=== PATIENT | female | born 1980 | race African-American/Black ===

== ENCOUNTER 2020-03-06 14:26 | Emergency (ER) | payer SELFPAY ==
[~2020-03-06 14:26] MED LIST: Iopamidol 370 76% 100 ML VIAL ONE
[2020-03-06 15:07] LABS: #Lymphocytes 1.6 thou/uL (1.20-3.40); #Monocytes 0.8 thou/uL (0.11-0.59); #Neutrophils 9.5 thou/uL (1.40-6.50); %Basophils 0.4 % (0.0-1.0); %Lymphocytes 13.4 % (21.0-51.0); %Monocytes 6.4 % (0.0-10.0); %Neutrophils 79.8 % (42.0-75.0); Hemoglobin 12.1 g/dL (12.0-16.0); Mean Corpuscular HGB CONC 31.3 g/dL (32.0-36.0); Mean Corpuscular Hemoglobin 33.3 pg (27.0-31.0); Mean Platelet Volume 5.9 fL (7.4-10.4); Platelet Count 551 thou/uL (130-400); RBC Distribution Width 15.2 % (11.5-14.5); Red Blood Cell (RBC) Count 3.63 mill/uL (4.20-5.40)
[2020-03-06 15:12] LABS: Pregnancy Test - Urine (BHCG) Negative (Negative); Pregu Control Background? CLEAR/WHITE (CLR/WHITE); Pregu Control Bar Appear? YES (CONTROL BAR)
[2020-03-06] MEDS ORDERED: Ondansetron PF 4 MG/2 ML Vial ONE ×3 (15:15→18:23)
[2020-03-06] MEDS ORDERED: Sodium Chloride 0.9% 1,000 ML ONE ×2 (15:15→15:54)
[2020-03-06 15:17] LABS: Bilirubin Moderate (Negative); Blood, Urine Negative (Negative); Clarity Slightly Cloudy (Clear); Glucose, Urine (Dipstick) Negative (Negative); Leukocyte Negative (Negative); Nitrite Positive (Negative); Protein, Urine (Dipstick) 100 mg/dL (Neg-Trace)
[2020-03-06 15:18] LABS: RBC/HPF 0-3 HPF (0-3)
[2020-03-06 15:19] LABS: Bacteria/HPF Rare-Few HPF (None Seen); Mucous/LPF 2+ LPF (<2+)
[2020-03-06 15:26] LABS: Hypochromia SLIGHT = 6-15 cells (100X) (0-5/hpf); MDiff Complete? YES; Macrocytosis MODERATE=16-30 cells (100X) (0-5/hpf); Platelet Morphology Comment Appears Increased
[2020-03-06 15:36] LABS: ALT (SGPT) 69 U/L (8-55); AST (SGOT) 102 U/L (5-34); Albumin 4.2 g/dL (3.5-5.0); Alkaline Phosphatase 117 U/L (40-110); Anion Gap 31 mmol/L (10-20); BUN (Urea Nitrogen) 6 mg/dL (7.0-18.7); Calc. Creatinine Clearance 0 mL/min (70-130); Calcium 10.2 mg/dL (7.8-10.44); Carbon Dioxide 20 mmol/L (22-29); Chloride 95 mmol/L (98-107); Estimated GFR-MDRD Greater than 90; Globulin 3.6 g/dL (2.4-3.5); Glucose 87 mg/dL (70-105); Lipase 36 U/L (8-78); Protein, Total 7.8 g/dL (6.0-8.3); Sodium 143 mmol/L (136-145)
[2020-03-06 15:51] LABS: Potassium 2.9 mmol/L (3.5-5.1)
[2020-03-06] MEDS ORDERED: Promethazine HCl 25 MG/ML VIAL ONE (15:54)
[2020-03-06] MEDS ORDERED: Cefepime 2 GM VIAL ONE (16:15)
[2020-03-06] MEDS ORDERED: Potassium Chloride 10 MEQ/100 ML PREMIX BAG ONE (17:13)
--- NOTE | 2020-03-06 17:35 | CT ---
CT Abdomen Pelvis W Con History: Nausea with vomiting Comparison: None. Findings: Mild atelectasis right middle lobe. No pericardial effusion. Severe hepatic steatosis. Mild diverticular disease of the descending colon. Submucosal edema with thickened ascending and davidson sverse colon with mild mesenteric edema. There are also a few loops of bowel in the left lower quadrant the abdomen, the jejunum, which are mildly distended with sacculations. Symmetrical subtle f atty infiltration of the cecum. The aortoiliac contour is nonaneurysmal. The appendix is visualized and is normal. Lumbosacral transitional vertebra. No hydronephrosis. Adrenal glands are unremarkable. Impression: 1. Findings of ascending and transverse colitis. Given the submucosal fatty infiltration, left upper quadrant small bowel sacculations and diffuse hepatic steatosis, findings can be seen with chronic inflammatory bowel disease. Nonemergent GI follow-up recommended. 2. Normal appendix.
[2020-03-06] MEDS ORDERED: Vancomycin 1.5 GRAM/300 ML BAG ONE (17:58)
[2020-03-06] MEDS ORDERED: Morphine 4 MG/ML VIAL ONE (17:58)
[2020-03-06] MEDS ORDERED: metroNIDAZOLE 500 MG/100 ML BAG ONE (17:58)
[2020-03-06] MEDS ORDERED: Sodium Chloride 0.9% 500 ML ONE (18:00)
[2020-03-06] MEDS ORDERED: Vancomycin HCl 750 MG VIAL ONE (18:00)
[2020-03-06] MEDS ORDERED: Lorazepam 2 MG/ML VIAL ONE (18:23)
[2020-03-06] MEDS ORDERED: diphenhydrAMINE 50 MG/ML VIAL ONE (18:23)
[2020-03-06 19:41] LABS: Lactic Acid 5.7 mmol/L (0.5-2.2)
== END 2020-03-06 19:50 | disposition short-term general hospital (02) ==
LOC: NAV ERS 14:26
DX: K52.9 Noninfective gastroenteritis and colitis, unspecified (principal); E87.6 Hypokalemia; E87.2 Acidosis; N39.0 Urinary tract infection, site not specified; R11.2 Nausea with vomiting, unspecified; I10 Essential (primary) hypertension; Z79.899 Other long term (current) drug therapy
CPT/HCPCS: 36415; 74177; 80053; 81003; 81015; 81025; 83605; 83690; 85025; 87040; 87086; 93005; 94760; 96365; 96366; 96367; 96368; 96375; 96376; J0692; J1200; J2060; J2270; J2405; J2550; J3370; J3480; J7030; J7050; Q9967

== ENCOUNTER 2020-03-23 20:15 | Emergency (ER) | payer OTHER, SELFPAY ==
[2020-03-23] MEDS ORDERED: Mag-Al Plus 1200 MG/1200 MG/120 MG/30 ML UDCUP ONE (21:00)
[2020-03-23] MEDS ORDERED: Lidocaine Viscous Sol 2% 15 ml UD Cup ONE (21:00)
[2020-03-23] MEDS ORDERED: Pantoprazole 40 MG VIAL ONE (21:00)
[2020-03-23 21:04] LABS: Bilirubin Moderate (Negative); Blood, Urine Negative (Negative); Clarity Clear (Clear); Glucose, Urine (Dipstick) Negative (Negative); Ketone, Urine 15 mg/dL (Negative); Leukocyte Negative (Negative); Nitrite Negative (Negative); Protein, Urine (Dipstick) 30 mg/dL (Neg-Trace); pH, Urine 6.5 (5.0-9.0)
[2020-03-23 21:07] LABS: Bacteria/HPF Rare-Few HPF (None Seen); Squamous Epithelial 0-3 HPF (0-3); WBC/HPF 0-3 HPF (0-3)
[2020-03-23 21:17] LABS: #Basophils 0.1 thou/uL (0.0-0.2); #Lymphocytes 2.7 thou/uL (1.20-3.40); #Monocytes 0.6 thou/uL (0.11-0.59); #Neutrophils 7.6 thou/uL (1.40-6.50); %Basophils 1.3 % (0.0-1.0); %Eosinophils 0.2 % (0.0-10.0); %Lymphocytes 24.1 % (21.0-51.0); %Monocytes 5.7 % (0.0-10.0); %Neutrophils 68.7 % (42.0-75.0); Hemoglobin 10.1 g/dL (12.0-16.0); Mean Corpuscular HGB CONC 32.8 g/dL (32.0-36.0); Mean Corpuscular Hemoglobin 34.1 pg (27.0-31.0); Mean Platelet Volume 5.8 fL (7.4-10.4); Platelet Count 768 thou/uL (130-400); RBC Distribution Width 15.1 % (11.5-14.5); Red Blood Cell (RBC) Count 2.95 mill/uL (4.20-5.40)
[2020-03-23 21:30] LABS: ALT (SGPT) 42 U/L (8-55); AST (SGOT) 59 U/L (5-34); Alkaline Phosphatase 106 U/L (40-110); Anion Gap 23 mmol/L (10-20); BUN (Urea Nitrogen) 5 mg/dL (7.0-18.7); Bilirubin, Total 0.8 mg/dL (0.2-1.2); Calc. Creatinine Clearance 0 mL/min (70-130); Calcium 9.6 mg/dL (7.8-10.44); Carbon Dioxide 23 mmol/L (22-29); Chloride 97 mmol/L (98-107); Estimated GFR-MDRD Greater than 90; Globulin 3.5 g/dL (2.4-3.5); Glucose 97 mg/dL (70-105); Lipase 49 U/L (8-78); Protein, Total 7.5 g/dL (6.0-8.3); Sodium 140 mmol/L (136-145)
[2020-03-23 21:33] LABS: Potassium 2.7 mmol/L (3.5-5.1)
[2020-03-23] MEDS ORDERED: Ondansetron PF 4 MG/2 ML Vial ONE (23:09)
[2020-03-23 23:52] LABS: Lactic Acid 1.3 mmol/L (0.5-2.2)
[2020-03-24] MEDS ORDERED: Potassium Chloride 20 MEQ TAB ONE (00:04)
[2020-03-25 12:17] LABS: SARS-CoV-2 MS2 Positive; SARS-CoV-2 N Gene Negative; SARS-CoV-2 S Gene Negative; SARS-CoV-2 orf1ab Negative
== END 2020-03-24 00:20 | disposition home or self-care (01) ==
LOC: NAV ERS 20:15
DX: E86.0 Dehydration (principal); E87.6 Hypokalemia; I10 Essential (primary) hypertension; Z79.899 Other long term (current) drug therapy
CPT/HCPCS: 36415; 80053; 81003; 81015; 83605; 83690; 85025; 87635; 96361; 96365; 96366; 96375; C9113; J2405; U0003

== ENCOUNTER 2022-06-18 15:27 | Emergency (ER) | payer SELFPAY ==
[2022-06-18] MEDS ORDERED: Sodium Chloride 0.9% 1,000 ML ONE (15:47)
[2022-06-18] MEDS ORDERED: Promethazine HCl 25 MG/ML VIAL ONE (15:47)
[2022-06-18] MEDS ORDERED: Metoclopramide HCl 10 MG/2 ML VIAL ONE (15:49)
[2022-06-18] MEDS ORDERED: diphenhydrAMINE 50 MG/ML VIAL ONE (15:49)
[2022-06-18 15:56] LABS: #Basophils 0.1 thou/uL (0.0-0.2); #Lymphocytes 1.4 thou/uL (1.20-3.40); #Monocytes 0.5 thou/uL (0.11-0.59); #Neutrophils 5.4 thou/uL (1.40-6.50); %Basophils 1.1 % (0.0-1.0); %Eosinophils 0.1 % (0.0-10.0); %Lymphocytes 18.8 % (21.0-51.0); %Monocytes 6.9 % (0.0-10.0); Hemoglobin 14.8 g/dL (12.0-16.0); Mean Corpuscular HGB CONC 33.3 g/dL (32.0-36.0); Mean Corpuscular Hemoglobin 32.3 pg (27.0-31.0); Mean Platelet Volume 8.2 fL (7.4-10.4); Platelet Count 254 thou/uL (130-400); RBC Distribution Width 11.3 % (11.5-14.5); Red Blood Cell (RBC) Count 4.58 mill/uL (4.20-5.40); White Blood Cell (WBC) Count 7.4 thou/uL (4.8-10.8)
[2022-06-18 16:15] LABS: ALT (SGPT) 89 U/L (8-55); AST (SGOT) 141 U/L (5-34); Albumin 4.7 g/dL (3.5-5.0); Alkaline Phosphatase 119 U/L (40-110); Anion Gap 24 mmol/L (10-20); BUN (Urea Nitrogen) 8 mg/dL (7.0-18.7); Bilirubin, Total 1.3 mg/dL (0.2-1.2); Calc. Creatinine Clearance 0 mL/min (70-130); Calcium 9.8 mg/dL (7.8-10.44); Carbon Dioxide 24 mmol/L (22-29); Chloride 98 mmol/L (98-107); Estimated GFR 88; Globulin 3.4 g/dL (2.4-3.5); Glucose 110 mg/dL (70-105); Protein, Total 8.1 g/dL (6.0-8.3); Sodium 143 mmol/L (136-145)
[2022-06-18 16:15] LABS: Bilirubin Small (Negative); Blood, Urine Negative (Negative); Glucose, Urine (Dipstick) Negative (Negative); Ketone, Urine Negative (Negative); Leukocyte Negative (Negative); Nitrite Negative (Negative); Protein, Urine (Dipstick) 100 mg/dL (Neg-Trace)
[2022-06-18 16:16] LABS: Clarity Hazy (Clear)
[2022-06-18 16:18] LABS: Potassium 2.9 mmol/L (3.5-5.1)
[2022-06-18 16:20] LABS: Specific Gravity, Urine 1.026 (1.002-1.036)
[2022-06-18 16:28] LABS: Bacteria/HPF 2+ HPF (None Seen); RBC/HPF 0-3 HPF (0-3); WBC/HPF 0-3 HPF (0-3); Yeast-Budding 2+ HPF (None Seen)
[2022-06-18] MEDS ORDERED: NS 0.9% w/ 20 MEQ KCL 1,000 ML ONE (16:30)
== END 2022-06-18 17:53 | disposition home or self-care (01) ==
LOC: NAV ERS 15:27
DX: E87.6 Hypokalemia (principal); R11.2 Nausea with vomiting, unspecified; I10 Essential (primary) hypertension
CPT/HCPCS: 80053; 81003; 81015; 85025; 96365; 96367; 96375; J1200; J2550; J2765; J3480; J7050

== ENCOUNTER 2023-04-12 15:12 | Emergency (ER) | payer BC, SELFPAY ==
[2023-04-12] MEDS ORDERED: Sodium Chloride 0.9% 1,000 ML ONE ×2 (15:49→16:58)
[2023-04-12] MEDS ORDERED: Promethazine HCl 25 MG/ML VIAL ONE (15:58)
[2023-04-12 16:09] LABS: #Monocytes 0.5 thou/uL (0.11-0.59); #Neutrophils 13.4 thou/uL (1.40-6.50); %Basophils 0.3 % (0.0-1.0); %Lymphocytes 6.8 % (21.0-51.0); %Monocytes 3.6 % (0.0-10.0); %Neutrophils 89.4 % (42.0-75.0); Hematocrit 44.6 % (36.0-47.0); Hemoglobin 14.5 g/dL (12.0-16.0); Mean Corpuscular HGB CONC 32.4 g/dL (32.0-36.0); Mean Corpuscular Hemoglobin 30.2 pg (27.0-31.0); Mean Corpuscular Volume 93.3 fl (78.0-98.0); Mean Platelet Volume 7.3 fL (7.4-10.4); Platelet Count 340 10x3/uL (130-400); RBC Distribution Width 11.4 % (11.5-14.5); Red Blood Cell (RBC) Count 4.78 mill/uL (4.20-5.40)
[2023-04-12 16:28] LABS: ALT (SGPT) 113 U/L (8-55); AST (SGOT) 253 U/L (5-34); Albumin 5.4 g/dL (3.5-5.0); Alkaline Phosphatase 148 U/L (40-110); Anion Gap 28 mmol/L (10-20); BUN (Urea Nitrogen) 17 mg/dL (7.0-18.7); Bilirubin, Total 1.6 mg/dL (0.2-1.2); CK (CPK) 100 U/L (29-168); Calc. Creatinine Clearance 0 mL/min (70-130); Calcium 10.9 mg/dL (7.8-10.44); Carbon Dioxide 17 mmol/L (22-29); Chloride 94 mmol/L (98-107); Estimated GFR 21; Globulin 4.3 g/dL (2.4-3.5); Glucose 123 mg/dL (70-105); Potassium 3.4 mmol/L (3.5-5.1); Protein, Total 9.7 g/dL (6.0-8.3); Sodium 136 mmol/L (136-145)
[2023-04-12 16:38] LABS: Magnesium 0.6 mg/dL (1.6-2.6)
[2023-04-12] MEDS ORDERED: Magnesium 2 GM/50 ML BAG (IN WATER) ONE (16:58)
[2023-04-12 17:25] LABS: Bilirubin Moderate (Negative); Blood, Urine Trace (Negative); Clarity Turbid (Clear); Glucose, Urine (Dipstick) Negative (Negative); Ketone, Urine 15 mg/dL (Negative); Leukocyte Negative (Negative); Nitrite Negative (Negative); Protein, Urine (Dipstick) > or equal to 300 mg/dL (Neg-Trace); Urobilinogen 0.2 mg/dL (Less than 2)
[2023-04-12 17:26] LABS: CAUTI Indications for Culture Pelvic or flank pain; Specific Gravity, Urine 1.026 (1.002-1.036)
[2023-04-12 17:31] LABS: RBC/HPF 0-3 HPF (0-3); Transitional Epithelial 0-3 HPF (None Seen); WBC/HPF 0-3 HPF (0-3); Yeast-Budding 1+ HPF (None Seen); Yeast-Hyphae 1+ HPF (None Seen)
[2023-04-12 17:32] LABS: Urine Culture Reflex No No
== END 2023-04-12 19:37 | disposition left against medical advice (07) ==
LOC: NAV ERS 15:12
DX: N17.9 Acute kidney failure, unspecified (principal); E86.0 Dehydration; E87.6 Hypokalemia; E83.42 Hypomagnesemia; I10 Essential (primary) hypertension; Z79.899 Other long term (current) drug therapy
CPT/HCPCS: 36415; 80053; 81001; 82550; 83735; 85025; 94760; 96361; 96365; 96375; J2550; J3475; J7050

== ENCOUNTER 2023-04-15 14:37 | Emergency (ER) | payer BC ==
[2023-04-15 15:10] LABS: #Basophils 0.1 thou/uL (0.0-0.2); #Eosinphils 0.1 thou/uL (0.0-0.7); #Lymphocytes 3.9 thou/uL (1.20-3.40); #Monocytes 0.8 thou/uL (0.11-0.59); #Neutrophils 4.4 thou/uL (1.40-6.50); %Basophils 1.2 % (0.0-1.0); %Eosinophils 0.7 % (0.0-10.0); %Lymphocytes 42.5 % (21.0-51.0); %Monocytes 8.3 % (0.0-10.0); %Neutrophils 47.3 % (42.0-75.0); Hematocrit 34.9 % (36.0-47.0); Hemoglobin 11.4 g/dL (12.0-16.0); Mean Corpuscular HGB CONC 32.7 g/dL (32.0-36.0); Mean Corpuscular Hemoglobin 30.6 pg (27.0-31.0); Mean Corpuscular Volume 93.4 fl (78.0-98.0); Mean Platelet Volume 7.5 fL (7.4-10.4); Platelet Count 274 10x3/uL (130-400); RBC Distribution Width 11.9 % (11.5-14.5); Red Blood Cell (RBC) Count 3.73 mill/uL (4.20-5.40); White Blood Cell (WBC) Count 9.2 10x3/uL (4.8-10.8)
[2023-04-15 15:30] LABS: ALT (SGPT) 59 U/L (8-55); AST (SGOT) 78 U/L (5-34); Albumin 3.9 g/dL (3.5-5.0); Alkaline Phosphatase 112 U/L (40-110); Anion Gap 17 mmol/L (10-20); BUN (Urea Nitrogen) 10 mg/dL (7.0-18.7); Bilirubin, Total 0.3 mg/dL (0.2-1.2); Calc. Creatinine Clearance 0 mL/min (70-130); Carbon Dioxide 22 mmol/L (22-29); Chloride 104 mmol/L (98-107); Estimated GFR 105; Globulin 3.1 g/dL (2.4-3.5); Glucose 97 mg/dL (70-105); Magnesium 1.2 mg/dL (1.6-2.6); Potassium 3.2 mmol/L (3.5-5.1); Sodium 140 mmol/L (136-145)
== END 2023-04-15 16:15 | disposition home or self-care (01) ==
LOC: NAV ERS 14:37
DX: N17.9 Acute kidney failure, unspecified (principal); E83.42 Hypomagnesemia; E87.6 Hypokalemia; I10 Essential (primary) hypertension; Z79.899 Other long term (current) drug therapy
CPT/HCPCS: 36415; 80053; 83735; 85025; 99285

== ENCOUNTER 2023-04-18 15:14 | Emergency (ER) | payer BC ==
[2023-04-18] MEDS ORDERED: Sodium Chloride 0.9% 1,000 ML ONE ×2 (15:29→18:12)
[2023-04-18 15:56] LABS: #Basophils 0.1 thou/uL (0.0-0.2); #Lymphocytes 1.1 thou/uL (1.20-3.40); #Monocytes 0.6 thou/uL (0.11-0.59); #Neutrophils 5.9 thou/uL (1.40-6.50); %Basophils 1.2 % (0.0-1.0); %Eosinophils 0.1 % (0.0-10.0); %Lymphocytes 13.7 % (21.0-51.0); %Monocytes 8.3 % (0.0-10.0); %Neutrophils 76.7 % (42.0-75.0); Hematocrit 43.8 % (36.0-47.0); Hemoglobin 14.3 g/dL (12.0-16.0); Mean Corpuscular HGB CONC 32.6 g/dL (32.0-36.0); Mean Corpuscular Hemoglobin 30.6 pg (27.0-31.0); Mean Platelet Volume 6.5 fL (7.4-10.4); Platelet Count 186 10x3/uL (130-400); RBC Distribution Width 12.3 % (11.5-14.5); Red Blood Cell (RBC) Count 4.66 mill/uL (4.20-5.40); White Blood Cell (WBC) Count 7.7 10x3/uL (4.8-10.8)
[2023-04-18] MEDS ORDERED: Ondansetron PF 4 MG/2 ML Vial ONE (16:21)
[2023-04-18 16:26] LABS: ALT (SGPT) 43 U/L (8-55); AST (SGOT) 50 U/L (5-34); Alkaline Phosphatase 105 U/L (40-110); Anion Gap 21 mmol/L (10-20); BUN (Urea Nitrogen) 12 mg/dL (7.0-18.7); Bilirubin, Total 0.8 mg/dL (0.2-1.2); Calc. Creatinine Clearance 0 mL/min (70-130); Calcium 8.7 mg/dL (7.8-10.44); Carbon Dioxide 22 mmol/L (22-29); Chloride 96 mmol/L (98-107); Estimated GFR 74; Globulin 2.7 g/dL (2.4-3.5); Glucose 81 mg/dL (70-105); Potassium 2.7 mmol/L (3.5-5.1); Protein, Total 6.7 g/dL (6.0-8.3); Sodium 136 mmol/L (136-145)
[2023-04-18 16:29] LABS: Magnesium Less than 0.6 mg/dL (1.6-2.6)
[2023-04-18] MEDS ORDERED: Magnesium 2 GM/50 ML BAG (IN WATER) ONE (16:41)
[2023-04-18] MEDS ORDERED: Potassium Chloride 20 MEQ TAB ONE (16:48)
[2023-04-18 17:22] LABS: Bilirubin Negative (Negative); Blood, Urine Negative (Negative); Clarity Clear (Clear); Glucose, Urine (Dipstick) Negative (Negative); Ketone, Urine 15 mg/dL (Negative); Leukocyte Negative (Negative); Nitrite Negative (Negative); Protein, Urine (Dipstick) Negative (Neg-Trace); Urobilinogen 0.2 mg/dL (Less than 2)
[2023-04-18 17:24] LABS: CAUTI Indications for Culture Fever or rigors; Squamous Epithelial 0-3 HPF (0-3); WBC/HPF 0-3 HPF (0-3)
[2023-04-18 17:26] LABS: Urine Culture Reflex No No
[2023-04-18] MEDS ORDERED: Potassium Chloride 10 MEQ/100 ML PREMIX BAG ONE (18:13)
== END 2023-04-18 19:15 | disposition home or self-care (01) ==
LOC: NAV ERS 15:14
DX: E83.42 Hypomagnesemia (principal); E87.6 Hypokalemia; M62.838 Other muscle spasm; I10 Essential (primary) hypertension
CPT/HCPCS: 80053; 81001; 83735; 85025; 93005; 96361; 96365; 96367; 96375; J2405; J3475; J3480; J7050

== ENCOUNTER 2023-05-08 12:54 | Emergency (ER) | payer BC ==
[2023-05-08] MEDS ORDERED: Sodium Chloride 0.9% 1,000 ML ONE ×3 (13:30→18:49)
[2023-05-08] MEDS ORDERED: Pantoprazole 40 MG VIAL ONE (13:30)
[2023-05-08] MEDS ORDERED: Ondansetron PF 4 MG/2 ML Vial ONE (13:30)
[2023-05-08 13:48] LABS: #Basophils 0.1 thou/uL (0.0-0.2); #Lymphocytes 1.6 thou/uL (1.20-3.40); #Monocytes 0.6 thou/uL (0.11-0.59); #Neutrophils 9.1 thou/uL (1.40-6.50); %Basophils 0.9 % (0.0-1.0); %Neutrophils 80.1 % (42.0-75.0); Hematocrit 36.8 % (36.0-47.0); Mean Corpuscular HGB CONC 32.5 g/dL (32.0-36.0); Mean Corpuscular Hemoglobin 29.8 pg (27.0-31.0); Mean Corpuscular Volume 91.7 fl (78.0-98.0); Mean Platelet Volume 6.9 fL (7.4-10.4); Platelet Count 425 10x3/uL (130-400); RBC Distribution Width 11.6 % (11.5-14.5); Red Blood Cell (RBC) Count 4.01 mill/uL (4.20-5.40); White Blood Cell (WBC) Count 11.3 10x3/uL (4.8-10.8)
[2023-05-08 13:53] LABS: ALT (SGPT) 87 U/L (8-55); AST (SGOT) 122 U/L (5-34); Albumin 4.6 g/dL (3.5-5.0); Alkaline Phosphatase 116 U/L (40-110); Anion Gap 20 mmol/L (10-20); BUN (Urea Nitrogen) 14 mg/dL (7.0-18.7); Bilirubin, Total 0.7 mg/dL (0.2-1.2); CK (CPK) 84 U/L (29-168); Calc. Creatinine Clearance 0 mL/min (70-130); Calcium 9.6 mg/dL (7.8-10.44); Carbon Dioxide 16 mmol/L (22-29); Chloride 102 mmol/L (98-107); Estimated GFR 71; Globulin 3.9 g/dL (2.4-3.5); Glucose 109 mg/dL (70-105); Lipase 51 U/L (8-78); Potassium 4.7 mmol/L (3.5-5.1); Protein, Total 8.5 g/dL (6.0-8.3); Sodium 133 mmol/L (136-145)
[2023-05-08] MEDS ORDERED: Metoclopramide HCl 10 MG/2 ML VIAL ONE ×2 (14:01→18:49)
[2023-05-08] MEDS ORDERED: diphenhydrAMINE 50 MG/ML VIAL ONE (14:01)
[2023-05-08 14:07] LABS: Magnesium 0.9 mg/dL (1.6-2.6)
[2023-05-08] MEDS ORDERED: Magnesium 2 GM/50 ML BAG (IN WATER) ONE (14:20)
[2023-05-08 15:35] LABS: Bilirubin Negative (Negative); Blood, Urine Trace (Negative); Clarity Clear (Clear); Glucose, Urine (Dipstick) Negative (Negative); Ketone, Urine 15 mg/dL (Negative); Leukocyte Negative (Negative); Nitrite Negative (Negative); Protein, Urine (Dipstick) Negative (Neg-Trace); Urobilinogen 0.2 mg/dL (Less than 2); pH, Urine 5.5 (5.0-9.0)
[2023-05-08 15:36] LABS: CAUTI Indications for Culture Pelvic or flank pain
[2023-05-08 15:43] LABS: Bacteria/HPF None Seen HPF (None Seen); Cocaine Metabolite Screen Not Detected (NotDetected); Methamphetamine Not Detected (NotDetected); Opiate Screen Not Detected (NotDetected); Phencyclidine (PCP) Not Detected (NotDetected); RBC/HPF 0-3 HPF (0-3); Squamous Epithelial 0-3 HPF (0-3); THC/Cannabinoid Screen Not Detected (NotDetected); WBC/HPF 0-3 HPF (0-3); Yeast-Budding 1+ HPF (None Seen); Yeast-Hyphae 1+ HPF (None Seen)
[2023-05-08 15:44] LABS: Amphetamine Not Detected (NotDetected); Barbiturates Screen Not Detected (NotDetected); Benzodiazepine Screen Not Detected (NotDetected); Methadone Not Detected (NotDetected); Oxycodone Screen Not Detected (NotDetected); Tricyclic Screen Not Detected (NotDetected)
[2023-05-08 15:45] LABS: Urine Culture Reflex No No
[2023-05-08] MEDS ORDERED: fentaNYL 50 mcg/mL 1 mL Vial ONE (16:27)
== END 2023-05-08 20:28 | disposition home or self-care (01) ==
LOC: NAV ERS 12:54
DX: E86.0 Dehydration (principal); R11.2 Nausea with vomiting, unspecified; I10 Essential (primary) hypertension
CPT/HCPCS: 71045; 80053; 80306; 81001; 82550; 83605; 83690; 83735; 85025; 93005; 96361; 96365; 96375; 96376; C9113; J1200; J2405; J2765; J3010; J3475; J7050

== ENCOUNTER 2023-06-09 14:38 | Emergency (ER) | payer BC ==
[2023-06-09] MEDS ORDERED: Sodium Chloride 0.9% 1,000 ML ONE ×3 (14:57→18:00)
[2023-06-09] MEDS ORDERED: Ondansetron PF 4 MG/2 ML Vial ONE (14:57)
[2023-06-09 15:10] LABS: #Lymphocytes 2.9 thou/uL (1.20-3.40); #Monocytes 0.4 thou/uL (0.11-0.59); #Neutrophils 4.5 thou/uL (1.40-6.50); %Basophils 1.3 % (0.0-1.0); %Eosinophils 0.6 % (0.0-10.0); %Lymphocytes 36.3 % (21.0-51.0); %Monocytes 5.3 % (0.0-10.0); %Neutrophils 56.5 % (42.0-75.0); Hematocrit 37.1 % (36.0-47.0); Hemoglobin 12.2 g/dL (12.0-16.0); Mean Corpuscular HGB CONC 32.8 g/dL (32.0-36.0); Mean Corpuscular Hemoglobin 31.1 pg (27.0-31.0); Mean Corpuscular Volume 94.6 fl (78.0-98.0); Mean Platelet Volume 7.1 fL (7.4-10.4); Platelet Count 349 10x3/uL (130-400); RBC Distribution Width 11.8 % (11.5-14.5); Red Blood Cell (RBC) Count 3.92 mill/uL (4.20-5.40); White Blood Cell (WBC) Count 7.9 10x3/uL (4.8-10.8)
[2023-06-09 15:11] LABS: #Basophils 0.1 thou/uL (0.0-0.2)
[2023-06-09 15:19] LABS: ALT (SGPT) 21 U/L (8-55); AST (SGOT) 31 U/L (5-34); Albumin 4.7 g/dL (3.5-5.0); Alkaline Phosphatase 98 U/L (40-110); Anion Gap 21 mmol/L (10-20); BUN (Urea Nitrogen) 12 mg/dL (7.0-18.7); Bilirubin, Total 0.4 mg/dL (0.2-1.2); Calc. Creatinine Clearance 0 mL/min (70-130); Calcium 9.5 mg/dL (7.8-10.44); Carbon Dioxide 15 mmol/L (22-29); Chloride 102 mmol/L (98-107); Estimated GFR 89; Globulin 3.5 g/dL (2.4-3.5); Glucose 88 mg/dL (70-105); Lipase 50 U/L (8-78); Magnesium 1.1 mg/dL (1.6-2.6); Potassium 3.4 mmol/L (3.5-5.1); Protein, Total 8.2 g/dL (6.0-8.3); Sodium 135 mmol/L (136-145)
[2023-06-09] MEDS ORDERED: Metoclopramide HCl 10 MG/2 ML VIAL ONE (15:26)
[2023-06-09] MEDS ORDERED: Magnesium 2 GM/50 ML BAG (IN WATER) ONE (15:36)
[2023-06-09 15:51] LABS: Troponin I Less than 0.010 ng/mL (< 0.028)
[2023-06-09 16:52] LABS: Bacteria/HPF None Seen HPF (None Seen); Bilirubin Negative (Negative); Blood, Urine Negative (Negative); CAUTI Indications for Culture Dysuria,urgency,freq; Clarity Clear (Clear); Glucose, Urine (Dipstick) Negative (Negative); Ketone, Urine 15 mg/dL (Negative); Leukocyte Negative (Negative); Nitrite Negative (Negative); Protein, Urine (Dipstick) Negative (Neg-Trace); RBC/HPF None Seen HPF (0-3); Specific Gravity, Urine 1.015 (1.005-1.030); Squamous Epithelial None Seen HPF (0-3); Urobilinogen 0.2 mg/dL (Less than 2); WBC/HPF None Seen HPF (0-3); pH, Urine 5.5 (5.0-9.0)
[2023-06-09 16:53] LABS: Urine Culture Reflex No No
[2023-06-09 17:56] LABS: Lactic Acid 2.7 mmol/L (0.5-2.2)
[2023-06-09] MEDS ORDERED: Promethazine HCl 25 MG/ML VIAL ONE (18:58)
[2023-06-09 21:08] LABS: Magnesium 1.6 mg/dL (1.6-2.6)
== END 2023-06-09 21:25 | disposition home or self-care (01) ==
LOC: NAV ERS 14:38
DX: G43.D0 Abdominal migraine, not intractable (principal); I10 Essential (primary) hypertension
CPT/HCPCS: 36415; 71045; 80053; 81001; 83605; 83690; 83735; 84484; 85025; 85379; 93005; 96361; 96365; 96367; 96375; J2405; J2550; J2765; J3475; J7050

== ENCOUNTER 2024-08-21 20:10 | Emergency (ER) | payer BC ==
[2024-08-21] MEDS ORDERED: Ondansetron ODT 4 MG TAB ONE (20:20)
[2024-08-21] MEDS ORDERED: Sodium Chloride 0.9% 1,000 ML ONE (20:55)
[2024-08-21] MEDS ORDERED: Metoclopramide HCl 10 MG (2 mL) VIAL ONE (20:55)
[2024-08-21] MEDS ORDERED: Pantoprazole 40 MG VIAL ONE (20:55)
[2024-08-21] MEDS ORDERED: Sodium Chloride 0.9% 100 ML ONE (20:55)
[2024-08-21 21:08] LABS: #Basophils 0.1 thou/uL (0.0-0.2); #Monocytes 1.1 thou/uL (0.11-0.59); %Basophils 0.8 % (0.0-1.0); %Eosinophils 0.3 % (0.0-10.0); %Lymphocytes 32.3 % (21.0-51.0); %Monocytes 9.3 % (0.0-10.0); %Neutrophils 57.3 % (42.0-75.0); Hematocrit 26.7 % (36.0-47.0); Hemoglobin 9.2 g/dL (12.0-16.0); Mean Corpuscular HGB CONC 34.4 g/dL (32.0-36.0); Mean Corpuscular Hemoglobin 31.5 pg (27.0-31.0); Mean Corpuscular Volume 91.6 fl (78.0-98.0); Mean Platelet Volume 7.7 fL (7.4-10.4); Platelet Count 303 10x3/uL (130-400); RBC Distribution Width 11.2 % (11.5-14.5); Red Blood Cell (RBC) Count 2.91 mill/uL (4.20-5.40); White Blood Cell (WBC) Count 12.2 10x3/uL (4.8-10.8)
[2024-08-21 21:09] LABS: INR-International Normal Ratio 1.1; Prothrombin Time 14.2 sec (12.0-14.7)
[2024-08-21 21:17] LABS: ALT (SGPT) 61 U/L (8-55); AST (SGOT) 47 U/L (5-34); Albumin 3.2 g/dL (3.5-5.0); Alkaline Phosphatase 86 U/L (40-110); Anion Gap 15 mmol/L (10-20); BUN (Urea Nitrogen) 29 mg/dL (7.0-18.7); Bilirubin, Total 0.3 mg/dL (0.2-1.2); Calc. Creatinine Clearance 0 mL/min (70-130); Calcium 8.5 mg/dL (7.8-10.44); Carbon Dioxide 19 mmol/L (22-29); Chloride 105 mmol/L (98-107); Estimated GFR 97; Globulin 3.2 g/dL (2.4-3.5); Glucose 119 mg/dL (70-105); Lipase 58 U/L (8-78); Potassium 3.7 mmol/L (3.5-5.1); Protein, Total 6.4 g/dL (6.0-8.3); Sodium 135 mmol/L (136-145)
[2024-08-21 21:36] LABS: Magnesium 1.5 mg/dL (1.6-2.6)
[2024-08-21] MEDS ORDERED: Lorazepam 2 MG/ML VIAL ONE (21:50)
[2024-08-22 00:37] LABS: Bilirubin Negative (Negative); Blood, Urine Trace (Negative); Clarity Clear (Clear); Glucose, Urine (Dipstick) Negative (Negative); Ketone, Urine 15 mg/dL (Negative); Leukocyte Negative (Negative); Nitrite Negative (Negative); Protein, Urine (Dipstick) Negative (Neg-Trace); Urobilinogen 0.2 mg/dL (Less than 2)
[2024-08-22 00:40] LABS: Bacteria/HPF None Seen HPF (None Seen); CAUTI Indications for Culture Pelvic or flank pain; RBC/HPF None Seen HPF (0-3); Squamous Epithelial 0-3 HPF (0-3); Urine Culture Reflex No No; WBC/HPF None Seen HPF (0-3); Yeast-Budding Rare HPF (None Seen)
== END 2024-08-22 00:32 | disposition short-term general hospital (02) ==
LOC: NAV ERS 20:10
DX: K92.2 Gastrointestinal hemorrhage, unspecified (principal); I10 Essential (primary) hypertension; Z79.899 Other long term (current) drug therapy
CPT/HCPCS: 80053; 81001; 82274; 83690; 83735; 85025; 85610; 94760; 96361; 96365; 96375; J2060; J2470; J2765; J7030; Q0162